=== PATIENT | male | born 1975 | race Caucasian/White ===

== ENCOUNTER 2018-02-06 09:16 | Emergency (ER) | payer BC ==
[2018-02-06] MEDS ORDERED: Proparacaine 0.5% Ophth Soln 15 ML Bottle EYEBOTH STA (09:26)
[2018-02-06 09:40] VITALS: BP 123/66
--- NOTE | 2018-02-06 09:53 | EDM.PDOC ---
ED HPI GENERAL MEDICAL PROBLEM - General Chief Complaint: Eye Problems Stated Complaint: R EYE IRRIATION Time Seen by Provider: 02/06/18 09:48 Source of Information: Reports: Patient, Family, RN Notes Reviewed History Limitations: Reports: No Limitations - History of Present Illness INITIAL COMMENTS - FREE TEXT/NARRATIVE: 42-year-old gentleman presents emergency department today with injury to his right eye this happened when he was accidentally poked in the eye by finger - Related Data Allergies Allergy/AdvReac Type Severity Reaction Status Date / Time No Known Allergies Allergy Verified 02/06/18 09:32 Home Meds: Home Meds NK [No Known Home Meds] 05/09/15 [History] Past Medical History - Past Health History Medical/Surgical History: Denies Medical/Surgical History Social & Family History - Tobacco Use Smoking Status *Q: Current Every Day Smoker Years of Tobacco use: 15 Packs/Tins Daily: 0.5 Used Tobacco, but Quit: No - Recreational Drug Use Recreational Drug Use: No ED ROS GENERAL - Review of Systems Review Of Systems: See Below Constitutional: Reports: No Symptoms HEENT: Reports: Eye Pain ED EXAM GENERAL W FULL EYE - Physical Exam Exam: See Below Exam Limited By: No Limitations General Appearance: Alert, WD/WN, No Apparent Distress Eye Exam: Bilateral Eye: PERRL Visual Acuity (R) 20/: 20 Visual Acuity (L) 20/: 20 With Correction: No Eyelids: Bilateral: Normal Appearance Conjunctiva & Sclera: Right: Injected, Left: Normal Appearance Cornea Exam: Right: Corneal Abrasion Extraocular Movements: Bilateral: Intact Pupils: Normal Accommodation Pupillary Size: Bilateral: 5 mm Pupillary Reaction: Bilateral: Brisk Anterior Chamber: Bilateral: Normal Appearance Course - Vital Signs Last Recorded V/S: Last Vital Signs Temp 97.0 F 02/06/18 09:38 Pulse 69 02/06/18 09:38 Resp 14 02/06/18 09:38 BP 123/66 02/06/18 09:38 Pulse Ox 98 02/06/18 09:38 - Orders/Labs/Meds Meds: Medications Discontinued Medications Generic Name Dose Route Start Last Admin Trade Name Freq PRN Reason Stop Dose Admin Proparacaine HCl 1 ml 02/06/18 09:26 02/06/18 09:40 Proparacaine 0.5% Ophth Soln EYEBOTH 02/06/18 09:27 5 drop NOW STA Administration Departure - Departure Time of Disposition: 09:52 Disposition: Home, Self-Care 01 Condition: Good Clinical Impression: Injury of conjunctiva and corneal abrasion of right eye w/o FB Qualifiers: Encounter type: initial encounter Qualified Code(s): S05.01XA - Injury of conjunctiva and corneal abrasion without foreign body, right eye, initial encounter - Discharge Information Referrals: Mery Campos PA [Primary Care Provider] - Additional Instructions: Take full course of antibiotics, use hydrocodone as needed for pain control in combination with ibuprofen, please follow-up with your eye care provider in the next 1-2 days for reevaluation, call return to the emergency department with worsening of symptoms - Assessment/Plan Plan: Assessment Acuity = acute Site and laterality = corneal abrasion right eye Etiology = secondary to trauma Manifestations = pain Location of injury = Home Lab values = none Plan Prescription written for gentamicin ophthalmic drops 1 drop every 4 hours until clear, also provided hydrocodone 5/325 one tab by mouth 3 times a day when necessary as needed for pain control total #6, he is to follow-up with his eye care provider in the next 1-2 days This note was dictated using Jelli voice recognition software please call with any questions on syntax or ana maria.
== END 2018-02-06 10:06 | disposition home or self-care (01) ==
LOC: JP.ED 09:16
DX: S05.01XA Injury of conjunctiva and corneal abrasion without foreign body, right eye, initial encounter (principal); W22.8XXA Striking against or struck by other objects, initial encounter; F17.210 Nicotine dependence, cigarettes, uncomplicated
CPT/HCPCS: 99283; A9270

== ENCOUNTER 2019-11-25 12:30 | Emergency (ER) | payer BC ==
[2019-11-25 12:42] VITALS: BP 121/64; PULSE 77
[2019-11-25] MEDS ORDERED: HYDROmorphone 1 MG/ML Syringe IM ONE (12:58)
--- NOTE | 2019-11-25 13:07 | EDM.PDOC ---
ED HPI GENERAL MEDICAL PROBLEM - General Chief Complaint: Abdominal Pain Stated Complaint: KIDNEY STONES? 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 No injury. Was to clinic the beginning of the week and not naproxen and Flexeril which is not helping. Sometimes coughing makes the pain worse. No changes in bowel or bladder. No radiating down his legs. No leg numbness. No pHx of disc dz. Here with . Onset: Gradual Duration: Week(s): (1), Constant Location: Reports: Back (low), Radiates to (both groins) Quality: Reports: Ache Severity: Severe Improves with: Reports: Rest Worsens with: Reports: Movement (or coughing) Context: Reports: Other (unknown cause) Associated Symptoms: Reports: No Other Symptoms Treatments ADMITTING COORDINATOR: Reports: NSAIDS, Other (see below) (flexeril) Lower Pelvic Pain Score (Numeric/FACES): 7 - Related Data Allergies Allergy/AdvReac Type Severity Reaction Status Date / Time No Known Allergies Allergy Verified 02/06/18 09:32 Home Meds: Home Meds Acetaminophen/HYDROcodone [Marshall 325-5 MG] 1 - 2 tab PO Q6H PRN #12 tab [Rx] Cyclobenzaprine [Flexeril] 10 mg PO ASDIRECTED PRN 11/25/19 [History] Naproxen 500 mg PO ASDIRECTED 11/25/19 [History] Past Medical History - Past Health History Medical/Surgical History: Denies Medical/Surgical History Social & Family History - Tobacco Use Smoking Status *Q: Current Every Day Smoker Years of Tobacco use: 20 Packs/Tins Daily: 0.5 - Caffeine Use Caffeine Use: Reports: Coffee - Recreational Drug Use Recreational Drug Use: No ED ROS GENERAL - Review of Systems Review Of Systems: See Below Constitutional: Reports: No Symptoms HEENT: Reports: No Symptoms Respiratory: Reports: No Symptoms Cardiovascular: Reports: No Symptoms GI/Abdominal: Reports: No Symptoms : Reports: No Symptoms Musculoskeletal: Reports: Back Pain (low) Skin: Reports: No Symptoms Neurological: Reports: No Symptoms ED EXAM,LOWER BACK PAIN/INJURY - Physical Exam Exam: See Below Exam Limited By: No Limitations General Appearance: Alert, WD/WN, No Apparent Distress. No: Obese Eye Exam: Right Eye: Globe Laceration, Bilateral Eye: Normal Inspection Ears: Normal External Exam, Normal Canal, Hearing Grossly Normal Nose: Normal Inspection, No Blood Throat/Mouth: Normal Inspection, Normal Lips, Normal Oropharynx, Normal Voice, No Airway Compromise Head: Atraumatic, Normocephalic Neck: Normal Inspection Respiratory/Chest: No Respiratory Distress, No Accessory Muscle Use Cardiovascular: Regular Rate, Rhythm Back Exam: Normal Inspection, Decreased Range of Motion, Muscle Spasm (lumbar bilat.), Paraspinal Tenderness, Vertebral Tenderness (low lumbar). No: CVA Tenderness (R), CVA Tenderness (L) Extremities: Normal Inspection, Normal Range of Motion, Non-Tender, No Pedal Edema Neurological: Alert, Normal Mood/Affect, Normal Dorsiflexion, CN II-XII Intact, No Motor/Sensory Deficits, Oriented x 3 DTR - Lower Extremities: 1+: Knee (R), Knee (L) Psychiatric: Normal Affect, Normal Mood Skin Exam: Warm, Dry, Intact, Normal Color, No Rash Course - Vital Signs Last Recorded V/S: Last Vital Signs Temp 35 C L 11/25/19 12:43 Pulse 77 11/25/19 12:43 Resp 18 11/25/19 12:43 BP 121/64 11/25/19 12:43 Pulse Ox 98 11/25/19 12:43 - Orders/Labs/Meds Labs: Laboratory Tests 11/25/19 Range/Units 12:55 Urine Color Yellow (YELLOW) Urine Appearance Clear (CLEAR) Urine pH 5.0 (5.0-8.0) Ur Specific [place] 1.025 (1.008-1.030) Urine Protein Negative (NEGATIVE) mg/dL Urine Glucose (UA) Negative (NEGATIVE) mg/dL Urine Ketones Negative (NEGATIVE) mg/dL Urine Occult Blood Negative (NEGATIVE) Urine Nitrite Negative (NEGATIVE) Urine Bilirubin Negative (NEGATIVE) Urine Urobilinogen 0.2 (0.2-1.0) EU/dL Ur Leukocyte Esterase Negative (NEGATIVE) Urine RBC Not seen (0-5) Urine WBC Not seen (0-5) Ur Epithelial Cells Not seen Amorphous Sediment Few Urine Bacteria Not seen Urine Mucus Not seen Meds: Medications Discontinued Medications Generic Name Dose Route Start Last Admin Trade Name Alcidesq PRN Reason Stop Dose Admin Hydromorphone HCl 1 mg 11/25/19 12:58 11/25/19 13:05 Dilaudid IM 11/25/19 12:59 1 mg ONETIME ONE Administration - Radiology Interpretation Free Text/Narrative:: lumbar spine X-ray-early degen changes with spurring of vertebral bodies, loss of normal lumbar lordosis. IMPRESSION: Mild height loss of the T12 vertebrae representing a fracture of unknown age. If there is focal acute pain at this level, recommend CT for further evaluation. Mild multilevel degenerative disc and facet changes. Dictated by Amber Frederick MD @ Nov 25 2019 2:16PM Departure - Departure Time of Disposition: 14:21 Disposition: Home, Self-Care 01 Condition: Fair Clinical Impression: Spasm of muscle of lower back - Discharge Information *PRESCRIPTION DRUG MONITORING PROGRAM REVIEWED*: No *COPY OF PRESCRIPTION DRUG MONITORING REPORT IN PATIENT JAZMINE: No Prescriptions: Acetaminophen/HYDROcodone [Marshall 325-5 MG] 1 - 2 tab PO Q6H PRN #12 tab PRN Reason: Pain Referrals: Amber Potter MD [Primary Care Provider] - Forms: ED Department Discharge Additional Instructions: Get an abdominal binder/back support device to wear when lifting. Discuss with your primary care provider the options of PT and/or MRI of your back. Avoid lifting if possible. You may continue your current medications. Add Marshall if needed for added pain relief. Sepsis Event Note - Evaluation Sepsis Screening Result: No Definite Risk - Focused Exam Vital Signs: Vital Signs Temp Pulse Resp BP Pulse Ox 11/25/19 12:43 35 C L 77 18 121/64 98 11/25/19 12:41 35 C L 77 18 121/64 98 Date Exam was Performed: 11/25/19 Time Exam was Performed: 14:20
--- NOTE | 2019-11-25 14:18 | CRLCR ---
INDICATION: Low back pain for 1 week TECHNIQUE: Lumbar spine 3 view. COMPARISON: None FINDINGS: Bones: Alignment is normal. Mild height loss of the T12 vertebrae. Joints: Mild multilevel degenerative disc and facet changes. Soft tissues: Unremarkable. IMPRESSION: Mild height loss of the T12 vertebrae representing a fracture of unknown age. If there is focal acute pain at this level, recommend CT for further evaluation. Mild multilevel degenerative disc and facet changes. Dictated by Amber Frederick MD @ Nov 25 2019 2:16PM Signed by Dr. Amber Frederick @ Nov 25 2019 2:18PM
== END 2019-11-25 14:31 | disposition home or self-care (01) ==
LOC: JP.ED 12:30
DX: M62.830 Muscle spasm of back (principal); F17.210 Nicotine dependence, cigarettes, uncomplicated
CPT/HCPCS: 72100; 81001; 96372; 99283; J1170